=== PATIENT | female | born 1995 | race Caucasian/White ===

== ENCOUNTER 2019-05-17 09:46 | Emergency (ER) | payer OTHER ==
--- NOTE | 2019-05-17 10:51 | UC ---
Throat Pain/Nasal Rodolfo HPI - HPI Summary HPI Summary: Patient is a 23yo female presenting with cough and sore throat since last night. Denies sob and wheezing. Notes mid sternal chest discomfort with cough. Cough is nonproductive. Denies nasal congestion. Denies n/v. Denies fever, chills, body aches. Normal appetite and fluid intake. Notes fatigue. Patient states her toddler has similar symptoms. States concern for covid 19 because she works at [employer]. Would like testing for covid today. - History of Current Complaint Chief Complaint: UCGeneralIllness Stated Complaint: SORE THROAT COUGH Hx Obtained From: Patient Hx Last Menstrual Period: 05/12/19-tubal ligation Pain Intensity: 8 Pain Scale Used: 0-10 Numeric - Allergies/Home Medications Allergies/Adverse Reactions: Allergies Allergy/AdvReac Type Severity Reaction Status Date / Time No Known Allergies Allergy Verified 05/17/19 10:10 Home Medications: Home Medications NK [No Home Medications Reported] 05/17/19 [History Confirmed 05/17/19] PMH/Surg Hx/FS Hx/Imm Hx Previously Healthy: Yes - Surgical History Surgical History: None - Family History Known Family History: Positive: Diabetes - Social History Alcohol Use: None Substance Use Type: None Smoking Status (MU): Never Smoked Tobacco Review of Systems All Other Systems Reviewed And Are Negative: Yes Constitutional: Positive: Fatigue. Negative: Fever, Chills ENT: Positive: Sore Throat Respiratory: Positive: Cough. Negative: Shortness Of Breath Cardiovascular: Positive: Negative Gastrointestinal: Positive: Negative Musculoskeletal: Positive: Negative Neurological/Mental Status: Positive: Negative Physical Exam - Summary Physical Exam Summary: Vital Signs Reviewed: Yes A+Ox3, no distress, well-appearing Eyes: Conjunctiva Clear ENT: Hearing grossly normal, TM x 2 clear, moist, uvula midline, no exudate, + mild pharyngeal erythema Neck: Positive: Supple, no LAD Respiratory: Positive: No respiratory distress, No accessory muscle use + CTA throughout no w/r Cardiovascular: RRR nl s1, s2 no m/r Musculoskeletal Exam: LOPEZ x 4 without difficulty Neurological: Positive: Alert Psychological: Positive: age appropriate behavior Skin: Positive: no rash, no ecchymosis Vital Signs: Vital Signs (72 hours) 05/17/19 11:13 Temperature 97.6 F Pulse Rate 102 Respiratory 16 Rate Blood Pressure 110/72 (mmHg) O2 Sat by Pulse 100 Oximetry Lab Results 05/17/19 05/17/19 Range/Units 11:18 11:20 Influenza A (Rapid) Negative (Negative) Influenza B (Rapid) Negative (Negative) Group A Strep Rapid Negative (Negative) Throat Pain/Nasal Course/Dx - Course Course Of Treatment: Flu and strep tests were negative. I discussed strep and flu results with the patient and informed her that she would receive the covid19 results within the next 3-5 days. I discussed self quarantining. Instructed to go to the ED if she experiences worsening shortness of breath/difficulty breathing. Patient voiced understanding and agreed with treatment plan. All questions answered to the best of my abilities. - Differential Dx/Diagnosis Provider Diagnosis: Pharyngitis, Acute bronchitis Discharge ED - Sign-Out/Discharge Documenting (check all that apply): Patient Departure All imaging exams completed and their final reports reviewed: No Studies - Discharge Plan Condition: Stable Disposition: HOME Patient Education Materials: Pharyngitis (ED), Acute Bronchitis (ED) Forms: COVID-19 Tested & Isolation Referrals: No Primary Care Phys,NOPCP [Primary Care Provider] - Additional Instructions: A discussed, your rapid strep and flu tests were negative today. You also received testing for covid 19 today. You will be notified of the results within the next 3-5 days. You need to self-quarantine for the next 14 days unless otherwise advised by a healthcare provider. This means staying home and no contact with anyone who lives with you. You should not share your bedroom or bathroom. Food should be left outside your door for you to take once the other person has walked away. You may take tylenol for pain relief. Increase your fluid intake. Go to the nearest emergency room or call 911 if you experience new or worsening symptoms. - Billing Disposition and Condition Condition: STABLE Disposition: Home - Attestation Statements Provider Attestation: I was available for consult. This patient was seen by the HORACIO. The patient was not presented to, seen by, or examined by me. -Chacha
[2019-05-17 11:14] VITALS: BP 110/72
[2019-05-17 11:31] LABS: Influenza A Molecular Negative (Negative); Influenza B Molecular Negative (Negative)
== END 2019-05-17 11:54 | disposition home or self-care (01) ==
LOC: UCCORT 09:46
DX: J40 Bronchitis, not specified as acute or chronic (principal); J02.9 Acute pharyngitis, unspecified; Z20.828 Contact with and (suspected) exposure to other viral communicable diseases
CPT/HCPCS: 87635; 87651; 99211; G0463